=== PATIENT | female | born 1965 | race Caucasian/White ===

== ENCOUNTER 2016-12-10 09:34 | Outpatient (CLI) | payer OTHER | END 2016-12-10 09:35 | disposition home or self-care (01) | LOC: EEG 09:34 | PROVIDERS: ATTEND Student in an Organized Health Care Education/Training Program | DX: G43.909 Migraine, unspecified, not intractable, without status migrainosus (principal); R51 Headache; R56.9 Unspecified convulsions | CPT/HCPCS: 95822 ==

== ENCOUNTER 2017-11-09 09:40 | Day surgery (SDC) | payer OTHER ==
[2017-10-27 09:57] VITALS: BMI 24.7
[2017-11-09] MEDS ORDERED: Ondansetron HCl/PF 4 MG/2 ML Vial ONE (10:05)
[2017-11-09] MEDS ORDERED: Glycopyrrolate 0.2 MG/ML 5 ML SYRINGE ONE (10:05)
[2017-11-09] MEDS ORDERED: ePHEDrine/0.9% NaCl/PF SYRINGE 50 mg/10 ml ONE (10:05)
[2017-11-09] MEDS ORDERED: PROPOFOL 200 MG/20 ML VIAL ONE (10:05)
[2017-11-09] MEDS ORDERED: Dexamethasone 20 MG/5 ML VIAL ONE (10:05)
[2017-11-09] MEDS ORDERED: Lidocaine 1% PF 5 ML VIAL ONE (10:05)
[2017-11-09] MEDS ORDERED: PHENYLEPHRINE-NS 100 MCG/ML 10 ML SYRINGE ONE (10:05)
[2017-11-09] MEDS ORDERED: CEFAZOLIN/Water 2 GM/20 ML SYRINGE ONE (10:38)
[2017-11-09] MEDS ORDERED: Midazolam HCl 2 mg/2 ml Vial ONE (11:04)
[2017-11-09] MEDS ORDERED: Fentanyl 100 MCG/2 ML VIAL ONE ×3 (11:10→14:36)
[2017-11-09] MEDS ORDERED: Bupivacaine/Epinephrine 0.25% 30 ML VIAL ONE (11:13)
[2017-11-09] MEDS ORDERED: Promethazine HCl 25 MG/ML VIAL ONE (14:25)
[2017-11-09] MEDS ORDERED: Dexamethasone 4 mg/ml Vial ONE (14:59)
[2017-11-09] MEDS ORDERED: diphenhydrAMINE 50 MG/ML VIAL ONE (14:59)
[2017-11-09] MEDS ORDERED: traMADol HCl 50 MG TAB ONE (16:45)
--- NOTE | 2017-11-10 10:52 | OP ---
DATE OF PROCEDURE: 11/09/2017 PREOPERATIVE DIAGNOSIS: Incisional hernia. POSTOPERATIVE DIAGNOSIS: Soft tissue mass in abdomen, intra-abdominal adhesions. PROCEDURES: 1. Da Santos laparoscopic lysis of adhesions. 2. Excision of soft tissue mass, abdomen. SURGEON: Glynn Dyer MD ANESTHESIA: General. ESTIMATED BLOOD LOSS: Minimal. COMPLICATIONS: None. SPECIMEN: Soft tissue mass. TECHNIQUE: The patient was taken to the operating room and placed supine on the table. After genera l anesthetic was obtained, a Delgado was placed. The abdomen is prepped and draped in a sterile fashio n. Left subcostal 5-mm Optiview trocar was placed and high-flow pneumoperitoneum was obtained. An 1 1-mm applied medical trocar was placed in the lower midline below the palpable area of likely hernia and two 8 mm robot trocars were placed lateral to that. All ports were docked to the robot. Surgeon goes to the console. All posterior abdominal wall adhesions were taken down. The previous mesh josé ears to be in good shape and appears to cover the whole central abdomen. There were no obvious herni a defects. The patient has a palpable nodule that feels reducible just above the umbilicus; however, there is no fascial defect below. All port sites were infiltrated using local anesthetic. All port s are removed under a camera visualization, pneumoperitoneum was let down. A 4-0 Monocryl and Dermab ond used to close the skin incisions. Vertical incision was made over the palpable abnormality in th e upper midline. Cautery was used to dissect down to reveal some preperitoneal fat and soft tissue m ass is excised. This leaves a small hole in the anterior fascia which was closed using interrupted E thibond suture. The wound was irrigated and closed using 4-0 Monocryl and Dermabond. The patient en route to recovery in stable condition. All sponge counts, needle counts, lap counts are correct.
--- NOTE | 2017-11-15 05:48 | PQF ---
[facility] POST DISCHARGE CLINICAL DOCUMENTATION IMPROVEMENT CLARIFICATION FORM l Todays Date: 11/14/17 l Patients Name STEVEN CONRAD l l Admit Date 11/09/17 l Disch Date 11/09/17 Front Office Medical Assistant Name Kirill Marcos Email: [email or web address]: [phone] Present Clinical Indicators - Signs / Symptoms Results and Location in Medical Record [ ] Documentation of: [ ] [ ] Documentation of: [ ] [ ] Documentation of: [ ] [ ] Documentation of: [ ] [ ] Risks [ ] [ ] [ ] Treatment [ ] Lipoma of abdominal wall Please specify the size of excise lipoma of apbdominal wall with adequte margins in operative report. [ ] [ ] To be completed by Physician: ANABEL JURADO The documentation in this patients record requires clarification to ensure coding compliance and accuracy. Check the appropriate box and include in your discharge summary. [ ] [ ] [ ] [ ] Please check this box if this does not apply to this patient [ ] Unable to determine [ ] Other diagnosis: Review the following information and exercise your independent professional judgment in responding to the clarification. Based upon the clinical findings, risk factors, and treatment, please clarify if you are treating one of the above probable or suspected diagnoses. MTDD
== END 2017-11-09 17:20 | disposition home or self-care (01) ==
LOC: SDC 09:40
PROVIDERS: ATTEND Surgery
PROC: 0JB80ZZ Excision of Abdomen Subcutaneous Tissue and Fascia, Open Approach (ICD-10-PCS; principal; 2017-11-09)
PROC: 0DNW4ZZ Release Peritoneum, Percutaneous Endoscopic Approach (ICD-10-PCS; principal; 2017-11-09)
DX: K66.0 Peritoneal adhesions (postprocedural) (postinfection) (principal); R22.2 Localized swelling, mass and lump, trunk; G40.909 Epilepsy, unspecified, not intractable, without status epilepticus; E55.9 Vitamin D deficiency, unspecified; G43.909 Migraine, unspecified, not intractable, without status migrainosus; Z79.899 Other long term (current) drug therapy; Z88.5 Allergy status to narcotic agent; Z88.6 Allergy status to analgesic agent; Z88.8 Allergy status to other drugs, medicaments and biological substances; Z91.041 Radiographic dye allergy status; Z98.84 Bariatric surgery status
CPT/HCPCS: 88304; 96374; 96375; 96376; J1100; J1200; J2001; J2250; J2405; J2550; J2704; J3010

== ENCOUNTER 2018-07-22 14:17 | Emergency (ER) | payer OTHER ==
[2018-07-22 15:10] LABS: #Lymphocytes 1.7 thou/uL (1.20-3.40); #Monocytes 0.3 thou/uL (0.11-0.59); %Basophils 0.3 % (0.0-1.0); %Eosinophils 0.3 % (0.0-10.0); %Lymphocytes 20.8 % (21.0-51.0); %Monocytes 3.7 % (0.0-10.0); %Neutrophils 74.9 % (42.0-75.0); Hemoglobin 12.6 g/dL (12.0-16.0); Mean Corpuscular HGB CONC 33.9 g/dL (32.0-36.0); Mean Corpuscular Hemoglobin 32.7 pg (27.0-31.0); Mean Corpuscular Volume 96.4 fL (78.0-98.0); Mean Platelet Volume 9.7 fL (7.4-10.4); Platelet Count 207 thou/uL (130-400); RBC Distribution Width 12.3 % (11.5-14.5); Red Blood Cell (RBC) Count 3.87 mill/uL (4.20-5.40)
--- NOTE | 2018-07-22 15:24 | CT ---
CT Brain WO Con: 07/22/2018 2:48 PM CLINICAL HISTORY: Fall with head injury. COMPARISON: None. FINDINGS: Hemorrhage: None. Ventricular system: Normal in size and morphology for the patient's age. Cerebral parenchyma: Microvascular ischemic disease Midline shift: None. Mass: No mass effect. Calvarium: Normal. Visualized Paranasal sinuses: Clear. IMPRESSION: No acute intracranial abnormalities.
--- NOTE | 2018-07-22 15:26 | CT ---
CT Cervical Spine WO Con Indication: Pain/Injury COMPARISON: None FINDINGS: Acute fracture/subluxation: None Spinal alignment: Mild reversal of normal cervical curvature may be positional. Vertebral body heights: Maintained. Cervical spine degenerative change: Mild IMPRESSION: No acute osseous abnormality.
[2018-07-22 15:32] LABS: ALT (SGPT) 82 U/L (8-55); AST (SGOT) 253 U/L (5-34); Albumin 4.2 g/dL (3.5-5.0); Alkaline Phosphatase 124 U/L (40-150); Anion Gap 17 mmol/L (10-20); BUN (Urea Nitrogen) 20 mg/dL (9.8-20.1); Bilirubin, Total 0.8 mg/dL (0.2-1.2); Calc. Creatinine Clearance 0 mL/min (70-130); Calcium 9.2 mg/dL (7.8-10.44); Carbon Dioxide 21 mmol/L (22-29); Chloride 104 mmol/L (98-107); Estimated GFR-MDRD 78; Globulin 2.4 g/dL (2.4-3.5); Glucose 97 mg/dL (70-105); Potassium 3.7 mmol/L (3.5-5.1); Protein, Total 6.6 g/dL (6.0-8.3); Sodium 138 mmol/L (136-145)
--- NOTE | 2018-07-22 15:40 | CT ---
EXAM: Chest, Abdomen and Pelvic CT scan without contrast: CT thoracic spine without contrast, with 3-D volume rendering: CT lumbar spine without contrast, with 3-D volume rendering: HISTORY: Fall with injury and pain COMPARISON: None FINDINGS: No consolidation, suspicious nodule, or mass. No pleural effusion. No pneumothorax. No adenopathy. No acute process of the mediastinal structures. Liver: Unremarkable. Gallbladder:Surgically absent Pancreas:Unremarkable Spleen:Unremarkable. Adrenal glands:Unremarkable. Kidneys:No renal calculus or acute obstruction.No solid or cystic mass. Bowel: Evidence of prior surgery at the proximal gastric region. Urinary Bladder: Moderately distended Adenopathy:No adenopathy within the abdomen or pelvis. Free Air: No free air. Ascites: No ascites. Osseous structures: No acute osseous abnormalities. Evidence of prior ventral herniorrhaphy. IMPRESSION: No evidence of acute post traumatic sequela.
--- NOTE | 2018-07-22 16:26 | RAD ---
EXAM: 2 views of the left hip HISTORY: left hip pain after fell off a ladder onto her. COMPARISON: None FINDINGS: 2 views of the hip shows no evidence of acute fracture or dislocation. No degenerative prater ges are seen. No soft tissue swelling is present. IMPRESSION: No evidence of acute osseous abnormality.
[2018-07-22] MEDS ORDERED: Morphine 4 MG/ML VIAL ONE (16:27)
== END 2018-07-22 17:17 | disposition home or self-care (01) ==
LOC: ERS 14:17
DX: M25.552 Pain in left hip (principal); R73.03 Prediabetes; Z79.899 Other long term (current) drug therapy
CPT/HCPCS: 36415; 70450; 71250; 72125; 74177; 80053; 85025; 96374; J2270